=== PATIENT | female | born 1990 | race Caucasian/White ===

== ENCOUNTER 2017-06-26 02:45 | Emergency (ER) | payer OTHER ==
[~2017-06-26] VITALS: Ht 165.1 cm; Wt 56.7 kg
--- NOTE | 2017-06-26 02:55 | NUR ---
walk in to ED c/o headache with n/v started after crying since 2129 yesterday, (+) n/v & photophobia
[2017-06-26] MEDS ORDERED: BC PILLS (03:04)
--- NOTE | 2017-06-26 03:05 | NUR ---
exam by Dr. Guajardo
[2017-06-26] MEDS ORDERED: IV NORMAL SALINE 1000 ML BAG IV ONE (03:15)
[2017-06-26] MEDS ORDERED: METOCLOPRAMIDE HCL 10 MG/2 ML VIAL IV ONE (03:15)
--- NOTE | 2017-06-26 03:30 | NUR ---
med effective, symptoms resolved
[2017-06-26] MEDS ORDERED: METOCLOPRAMIDE HCL 10 MG/2 ML VIAL ONE (03:39)
[2017-06-26 03:42] LABS: BASOPHILS # (AUTO) 0.1 K/uL (0.0-8.0); BASOPHILS % (AUTO) 0.6 % (0.0-2.0); EOSINOPHILS # (AUTO) 0.1 K/uL (0.0-0.7); EOSINOPHILS % (AUTO) 1.2 % (0.0-7.0); HEMOGLOBIN 13.6 G/DL (12.0-16.0); LYMPHOCYTES # (AUTO) 1.6 K/UL (0.8-4.8); LYMPHOCYTES % (AUTO) 14.2 % (20.5-51.5); MEAN CORPUSCULAR HEMOGLOBIN 30.9 UUG (27.0-31.0); MEAN CORPUSCULAR HGB CONC 34 g/dL (32.0-37.0); MEAN CORPUSCULAR VOLUME 91.3 FL (81.0-99.0); MONOCYTES # (AUTO) 0.3 K/UL (0.1-1.30); MONOCYTES % (AUTO) 2.7 % (0.0-11.0); NEUTROPHILS % (AUTO) 81.3 % (38.5-71.5); PLATELET COUNT (AUTO) 204 K/UL (150-450); RED BLOOD CELL COUNT(AUTO) 4.38 MIL/UL (4.2-5.4); WHITE BLOOD COUNT (AUTO) 11.1 K/UL (4.0-11.2)
[2017-06-26 03:52] LABS: CREATININE 0.9 mg/dL (0.6-1.3); POTASSIUM 3.7 mmol/L (3.5-5.1)
--- NOTE | 2017-06-26 04:50 | NUR ---
re lily by Dr. Guajardo
[2017-06-26 05:48] VITALS: BP 123/65
== END 2017-06-26 05:00 | disposition home or self-care (01) ==
LOC: ER 02:53
DX: R51 Headache (principal); R11.2 Nausea with vomiting, unspecified
CPT/HCPCS: 36415; 70030-TC; 70450; 84703; 85025; 85651; 85730; A4663; J2765; J7030